=== PATIENT | female | born 1990 | race Caucasian/White ===

== ENCOUNTER → 2016-04-13 | Outpatient (CLI) | payer BC ==
[~2016-04-13] MED LIST: ACETAMINOPHEN325 MG PO; APNO TOP; BACTRIM DS1 TAB PO; DERMOPLAST SPRA56 GM TOP; FEOSOL325 MG PO; LANSINOH7 GM TOP; MOTRIN800 MG PO; NORCO 5-325 MG1 TAB PO; PERCOCET 5-3251 EACH PO; PRENATAL 1+1)(P1 TAB PO; PROTONIX40 MG PO; TUCKS1 EACH TOP; TUMS200 MG PO
== END | disposition disaster alternative care site (69) ==
LOC: GRAD 14:40
DX: Z87.442 Personal history of urinary calculi (principal)

== ENCOUNTER → 2016-06-12 | Outpatient (CLI) | payer BC | END | disposition disaster alternative care site (69) | LOC: GRAD 15:37 | DX: R10.9 Unspecified abdominal pain (principal); N20.0 Calculus of kidney ==